=== PATIENT | male | born 1950 | race Caucasian/White ===

== ENCOUNTER → 2019-01-09 | Day surgery (SDC) | payer MEDICARE, BC ==
[2019-01-07 11:57] LABS: BASOPHILS % 0.4 % (0.0-1.0); EOSINOPHILS # (AUTO) 0.2 (0.0-0.4); EOSINOPHILS % 2.1 % (0.0-6.0); HEMOGLOBIN 16.3 g/dL (14.0-18.0); LYMPHOCYTES # (AUTO) 1.4 (1.0-3.2); LYMPHOCYTES % 15.7 % (18.0-39.1); MEAN CORPUSCULAR HEMOGLOBIN 31.2 pg (28-32); MEAN CORPUSCULAR HGB CONC 34.7 g/dL (31-35); MONOCYTES # (AUTO) 0.6 (0.2-0.8); MONOCYTES % 7.2 % (4.4-11.3); NEUTROPHILS # (AUTO) 6.6 (2.1-6.9); NEUTROPHILS % 73.9 % (38.7-80.0); PLATELET COUNT 217 x10e3/uL (140-360); RED BLOOD COUNT 5.22 x10e6/uL (4.3-5.7); RED CELL DISTRIBUTION WIDTH 12.4 % (11.7-14.4)
[2019-01-07 12:15] LABS: ALANINE AMINOTRANSFERASE 22 IU/L (0-55); ALBUMIN 4.3 g/dL (3.5-5.0); ALBUMIN/GLOBULIN RATIO 1.4 (0.8-2.0); ALKALINE PHOSPHATASE 75 IU/L (40-150); ANION GAP 12.3 mmol/L (8-16); BLOOD UREA NITROGEN 12 mg/dL (7-26); BUN/CREATININE RATIO 13 (6-25); CALCIUM 10.1 mg/dL (8.4-10.2); CARBON DIOXIDE 30 mmol/L (22-29); CHLORIDE 99 mmol/L (98-107); CREATININE, SERUM 0.93 mg/dL (0.72-1.25); EST GLOMERULAR FILTRATION RATE > 60 ML/MIN (60-); GLUCOSE 98 mg/dL (74-118); POTASSIUM 4.3 mmol/L (3.5-5.1); SODIUM 137 mmol/L (136-145)
[2019-01-07 12:36] LABS: INR 0.92; PROTHROMBIN TIME 12.8 seconds (11.9-14.5)
[2019-01-07 12:45] LABS: THYROID STIMULATING HORMONE 0.535 uIU/mL (0.350-4.940)
--- NOTE | 2019-01-07 13:55 | Diagnostic Imaging Report ---
EXAMINATION: CHEST 2 VIEWS INDICATION: Pre-operative COMPARISON: None FINDINGS: LINES/TUBES:None LUNGS:The lungs are well-inflated. No focal consolidation or pulmonary edema. PLEURA:No pleural effusion or pneumothorax. MEDIASTINUM:The cardiomediastinal silhouette appears normal in size and shape. BONES/SOFT TISSUES:No acute osseous injury. ABDOMEN:No free air under the diaphragm. IMPRESSION: No focal pneumonia or pulmonary edema. Signed by: Marry Davies MD on 01/07/2019 1:52 PM
[2019-01-09] VITALS (10 sets, daily range): BP systolic 115–153; BP diastolic 62–87
[~2019-01-09] VITALS: Ht 170.2 cm; Wt 90.7 kg
[~2019-01-09] MED LIST: ASPIRIN325 MG PO; ATORVASTATIN CA40 MG PO; CARVEDILOL12.5 MG PO; CLOPIDOGREL75 MG PO; FENTANYL CITRATE/PF 100MCG/2 ML INJ ONE; HEPARIN SOD (PORCINE) 1000 UNIT/ML 30ML ONE; HEPARIN SOD/SOD CHLORIDE 2,000 ML ONE; IOPAMIDOL 370 MG/ML 200 ML INFUS..BTL INJ ONE; LIDOCAINE HCL 2% LOCAL 20 ML VIAL ONE; LISINOPRIL10 MG PO; LORATADINE PO; LOSARTAN POTAS100 MG PO; MIDAZOLAM HCL 2 MG/2 ML VIAL ONE; MONTELUKAST SOD10 MG PO; MULTI-VITAMIN1 EACH PO; NITROGLYCERIN/D5W 200 MCG/ML 250 ML ONE; OMEPRAZOLE40 MG PO; SODIUM CHLORIDE 0.9% 1000ML 1,000 ML ONE; TAMSULOSIN HCL0.4 MG PO; VERAPAMIL HCL 2.5 MG/ML 2 ML VIAL ONE
--- OUTSIDE RECORDS SUMMARY | 2019-01-09 06:20 | XMS REPORT ---
Author [facility] Address Unknown Phone Unavailable Care Team Providers Care Software Implementation Project Manager Name Role Phone STARR LEHMAN Unavailable Unavailable Problems This patient has no known problems. Allergies, Adverse Reactions, Alerts This patient has no known allergies or adverse reactions. Medications This patient has no known medications. Results Test Description Test Time Test Comments Text Results Atomic Results Result Comments CHEST 2 VIEWS 2019-01-07 13:51:00 [place] [address] Patient Name: MP MOROCHO MR #: [id number] : 1950 Age/Sex: 68/M Req #: [id number] Adm Physician: Ordered by: STARR LEHMAN MD Report #: [id number] Location: [facility] Room/Bed: Procedure: [id number] DX/CHEST 2 VIEWS Exam Date: 01/07/19 Exam Time: 1202 REPORT STATUS: Signed EXAMINATION: CHEST 2 VIEWS INDICATION: Pre-operative COMPARISON: None FINDINGS: LINES/TUBES:None LUNGS:The lungs are well-inflated. No focal consolidation or pulmonary edema. PLEURA:No pleural effusion or pneumothorax. MEDIASTINUM:The cardiomediastinal silhouette appears normal in size and shape. BONES/SOFT TISSUES:No acute osseous injury. ABDOMEN:No free air under the diaphragm. IMPRESSION: No focal pneumonia or pulmonary edema. Signed by: Loly Malik MD on 01/07/2019 1:52 PM Dictated By: LOLY MALIK MD 135 Transcribed By: MARY ANN HUTCHISON on 01/07/191351 COPY TO: STARR LEHMAN MD
--- NOTE | 2019-01-09 09:15 | NUR ---
0915 bedside report received from MIKAELA Mendez. Alert oriented and appropriate, PERRLA, respirations even and unlabored to room air. Pulses x4 extremities equal and strong. Pedal pulses PT/DP X4 Cap fill brisk < 3 sec. C no fix Rt radial approach NO gross issues pain pallor pressure or dysthrthmia Skin warm and dry integrity appears D/I. IV 20g presents healthy w/o s/s of infiltration or complaint. Abdomen soft and supple. pt offered toileting, denies need to urinate or defecate. No personal affects with patient. Family at bedside. Pt and family verbalizes understanding of POC. Currently w/o complaint of pain or need. ok to decrease air to TR band at 915am ds/rn
--- NOTE | 2019-01-09 09:15 | NUR ---
0915 RADIAL Compression removal: Initial Cuff volume 13 cc -2cc Removed No hematoma/bleeding noted with normal neurovascular function. 0930 -2 cc Removed No hematoma/ bleeding noted with normal neurovascular function. 0945 -2 cc Removed No hematoma/bleeding noted with normal neurovascular function. 1000 -2 cc Removed No hematoma/ bleeding noted with normal neurovascular function. Air removal completed. 1015 Stasis achieved sterile 2x2,Tegaderm, Coban dressing No hematoma, bleeding noted with normal neurovascular function. Wrist splint in place. Pt instructed on POC. Ds/Rn
--- NOTE | 2019-01-09 10:30 | NUR ---
1030 Pt meets DC criteria. Rt radial assessed for s/s of complication and presence of hematoma. warm, dry, no discolor, and pulses present. IV removed from left hand. Distal tip appears intact. VS WNL. Pt denies pain, sob, or need at this time. Family at at bedside. Review of discharge paperwork and follow up instructions. verbalized understanding. Pt to wheelchair and transported to front of hospital. Transferred to private vehicle under own strength w/o incident with DC paperwork in hand. -ds/rn
--- NOTE | 2019-01-09 13:11 | Operative Report ---
DATE OF PROCEDURE: 01/09/2019 SURGEON: Velia Maya MD PROCEDURE PERFORMED: Left heart cardiac catheterization, coronary angiography. INDICATION FOR PROCEDURE: A 68-year-old gentleman with history of hypertension, hypercholesteremia, CAD with prior history of LAD and circumflex PCI, ischemic cardiomyopathy with EF of about 40%. He has been having cardiopulmonary symptoms concerning for worsening class 3 to 4 angina and abnormal nuclear stress test. DESCRIPTION OF PROCEDURE: After risks, benefits, and pros and cons of today's procedure explained, the patient agreed to proceed. The patient was brought to the cardiac catheterization laboratory. The right wrist was prepped and draped in usual sterile fashion. A 1% lidocaine solution was to numb the right wrist region, and access to the right radial artery was obtained and a long 5-Hungarian Terumo glide sheath was placed. Intra-arterial verapamil 2.5 mg and nitroglycerin 200 mcg were given through sheath and 5000 units of intravenous heparin was given for systemic anticoagulation. Selective coronary angiography of the [place] left and right coronary angiography was performed with Gabriel 4.0 diagnostic catheter. The Gabriel was placed in the ventricle for ventriculography and hemodynamic assessment of ventricular filling pressures. After noting no severe lesions, we decided to conclude the case. The Gabriel catheter was removed with 0.035 J-wire and a Terumo TR band was applied utilizing pain hemostasis technique over the right wrist region and total of 13 mL of air was placed. COMPLICATIONS: None. ESTIMATED BLOOD LOSS: None. FINDINGS: 1. Left main has a 30% ostial stenosis, gives rise to an LAD and circumflex branch. 2. LAD has proximal mid stent, that is widely patent. There is a 40% to 50% stenosis in the mid LAD. The remainder of this vessel has just mild luminal irregularities. 3. Left circumflex artery is codominant and gives rise to two moderate caliber vessels and supplies a large left posterolateral marginal branch. This vessel there is a mid circumflex artery stent that is patent. The remainder of this vessel just mild diffuse disease. 4. RCA is codominant, gives rise to right PDA and right PLV branch. There is an anterior superior takeoff of the RCA artery and there is 30% proximal stenosis followed by 40% mid stenosis. 5. Left ventricular end-diastolic pressure is 22 mmHg. There is no significant LV to aortic pullback gradient. PLAN/RECOMMENDATIONS: 1. Aspirin and Plavix therapy. 2. Statin therapy. 3. Aggressive risk factor modification and medical therapy. MD ROGER Costa/MAU /[id number]
== END | disposition home or self-care (01) ==
LOC: CATH LAB 06:12
PROVIDERS: ATTEND Internal Medicine Cardiovascular Disease
DX: I25.119 Atherosclerotic heart disease of native coronary artery with unspecified angina pectoris (principal); I11.0 Hypertensive heart disease with heart failure; I50.9 Heart failure, unspecified; I25.2 Old myocardial infarction; E78.01 Familial hypercholesterolemia; I65.23 Occlusion and stenosis of bilateral carotid arteries; K21.9 Gastro-esophageal reflux disease without esophagitis; Z87.891 Personal history of nicotine dependence; E66.09 Other obesity due to excess calories; Z68.31 Body mass index [BMI] 31.0-31.9, adult; R94.31 Abnormal electrocardiogram [ECG] [EKG]; Z95.5 Presence of coronary angioplasty implant and graft; M19.90 Unspecified osteoarthritis, unspecified site; I25.5 Ischemic cardiomyopathy; Z79.02 Long term (current) use of antithrombotics/antiplatelets; Z79.82 Long term (current) use of aspirin; Z09 Encounter for follow-up examination after completed treatment for conditions other than malignant neoplasm; Z88.8 Allergy status to other drugs, medicaments and biological substances
CPT/HCPCS: 36415; 71046; 80053; 80061; 84443; 85025; 85610; 85730; 93458; C1769; C1887 ×2; J1644; J2001; J2250; J3010; J7030; Q9967

== ENCOUNTER 2020-06-01 06:17 | Observation (INO) | payer MEDICARE, OTHER ==
[2020-05-27 10:33] LABS: BASOPHILS % 0.4 % (0.0-1.0); EOSINOPHILS # (AUTO) 0.2 (0.0-0.4); HEMATOCRIT 43.9 % (38.2-49.6); HEMOGLOBIN 14.9 g/dL (14.0-18.0); LYMPHOCYTES # (AUTO) 1.6 (1.0-3.2); LYMPHOCYTES % 16.9 % (18.0-39.1); MEAN CORPUSCULAR HEMOGLOBIN 30.3 pg (28-32); MEAN CORPUSCULAR HGB CONC 33.9 g/dL (31-35); MEAN CORPUSCULAR VOLUME 89.4 fL (81-99); MONOCYTES # (AUTO) 0.9 (0.2-0.8); MONOCYTES % 9.2 % (4.4-11.3); NEUTROPHILS # (AUTO) 6.8 (2.1-6.9); NEUTROPHILS % 70.6 % (38.7-80.0); PLATELET COUNT 226 x10e3/uL (140-360); RED BLOOD COUNT 4.91 x10e6/uL (4.3-5.7); RED CELL DISTRIBUTION WIDTH 12.6 % (11.7-14.4)
[2020-06-01] VITALS (8 sets, daily range): BP systolic 112–127; BP diastolic 62–66
[~2020-06-01] VITALS: Ht 170.2 cm; Wt 83.9 kg
[~2020-06-01 06:17] MED LIST changes: -FENTANYL CITRATE/PF 100MCG/2 ML INJ ONE; -HEPARIN SOD (PORCINE) 1000 UNIT/ML 30ML ONE; -HEPARIN SOD/SOD CHLORIDE 2,000 ML ONE; -IOPAMIDOL 370 MG/ML 200 ML INFUS..BTL INJ ONE; -LIDOCAINE HCL 2% LOCAL 20 ML VIAL ONE; -MIDAZOLAM HCL 2 MG/2 ML VIAL ONE; -NITROGLYCERIN/D5W 200 MCG/ML 250 ML ONE; -SODIUM CHLORIDE 0.9% 1000ML 1,000 ML ONE; -VERAPAMIL HCL 2.5 MG/ML 2 ML VIAL ONE
[2020-06-01] MEDS ORDERED: TRANEXAMIC ACID 1,000 MG/10 ML ML ONE (06:34)
[2020-06-01] MEDS ORDERED: VANCOMYCIN HCL 1,000 MG ONE (06:34)
[2020-06-01] MEDS ORDERED: SODIUM CHLORIDE 0.9% 500ML 500 ML ONE (06:34)
[2020-06-01] MEDS ORDERED: DEXAMETHASONE SOD PHOS 10 MG/1 ML VIAL ONE (07:01)
[2020-06-01] MEDS ORDERED: GABAPENTIN 300 MG CAP ONE (07:01)
[2020-06-01] MEDS ORDERED: CELECOXIB 200 MG CAP ONE (07:01)
[2020-06-01] MEDS ORDERED: CEFAZOLIN SOD 1 GM/NS 50ML 100 ML IV ONE (07:02)
[2020-06-01] MEDS ORDERED: ROPIVACAINE 246.25 MG, EPINEPHRINE HCL 1:1000 1ML 0.5 MG, CLONIDINE HCL 0.08 MG, KETORO... INJ ONE ×5 (08:00)
[2020-06-01] MEDS ORDERED: ACETAMINOPHEN 1000 MG/100 ML 100 ML IV ONE (09:16)
[2020-06-01] MEDS ORDERED: DOCUSATE SODIUM 100 MG CAP PO PRN (09:45)
[2020-06-01] MEDS ORDERED: HYDROCODONE/APAP 5MG-325MG TAB PO PRN (09:45)
[2020-06-01] MEDS: SODIUM CHLORIDE 0.9% 1000ML 1,000 ML IV SCH ×2 (09:45→19:45)
[2020-06-01] MEDS ORDERED: HYDROCODONE/APAP 7.5MG-325MG 1 EA TAB PO PRN (09:45)
[2020-06-01] MEDS ORDERED: ACETAMINOPHEN 650 MG SUPP PR PRN (09:45)
[2020-06-01] MEDS ORDERED: ONDANSETRON HCL INJ 2MG/ML 2ML 2 MG/ML VIAL IV PRN (09:45)
[2020-06-01] MEDS ORDERED: DIPHENHYDRAMINE HCL INJ 50 MG/ML VIAL IV PRN (09:45)
[2020-06-01] MEDS ORDERED: KETOROLAC TROMETHAMINE 30 MG/ML VIAL IV PRN (09:45)
[2020-06-01] MEDS ORDERED: ACETAMINOPHEN 1000 MG/100 ML IV PRN (12:00)
[2020-06-01] MEDS ORDERED: ONDANSETRON HCL INJ 2MG/ML 2ML 2 MG/ML VIAL ONE (12:30)
[2020-06-01] MEDS ORDERED: SEVOFLURANE INHAL SOLN 250 ML PEN BTL ONE (12:30)
[2020-06-01] MEDS ORDERED: LIDOCAINE HCL 2% LOCAL INJ 5 ML SDV VIAL INJ ONE (12:30)
[2020-06-01] MEDS ORDERED: EPHEDRINE SULFATE INJ 50 MG/ML VIAL ONE (12:30)
[2020-06-01] MEDS ORDERED: PROPOFOL IV EMULSION 10 MG/ML 20 ML VIAL ONE (12:30)
[2020-06-01] MEDS ORDERED: ROPIVACAINE 0.5% 5 MG/ML 30 ML SDV ONE (12:38)
[2020-06-01] MEDS ORDERED: MIDAZOLAM HCL 2 MG/2 ML VIAL ONE (13:11)
[2020-06-01] MEDS ORDERED: FENTANYL CITRATE/PF 100MCG/2 ML INJ ONE (13:11)
[2020-06-01] MEDS: CELECOXIB 100 MG CAP PO SCH (17:00)
[2020-06-01] MEDS: ASPIRIN 325 MG TAB PO SCH (17:00)
[2020-06-01] MEDS: CEFAZOLIN SOD 1 GM/NS 50ML 50 ML IV SCH ×2 (17:03→23:49)
[2020-06-01] MEDS ORDERED: ZOLPIDEM TARTRATE 5 MG TAB PO PRN (21:00)
[2020-06-02] VITALS: BP 118/62
[2020-06-02 04:00] VITALS: BP 140/69
[2020-06-02] MEDS: CEFAZOLIN SOD 1 GM/NS 50ML 50 ML IV SCH (05:24)
[2020-06-02] MEDS: SODIUM CHLORIDE 0.9% 1000ML 1,000 ML IV SCH (05:24)
[2020-06-02 05:56] LABS: HEMATOCRIT 38.5 % (38.2-49.6); HEMOGLOBIN 13.2 g/dL (14.0-18.0)
[2020-06-02] MEDS: ASPIRIN 325 MG TAB PO SCH (08:42)
[2020-06-02] MEDS: CELECOXIB 100 MG CAP PO SCH (08:42)
[2020-06-02 08:43] VITALS: BP 124/74
[2020-06-02] MEDS ORDERED: LOSARTAN POTASSIUM 100 MG TAB PO SCH (09:00)
[2020-06-02] MEDS ORDERED: CARVEDILOL 12.5 MG TAB PO SCH (09:00)
[2020-06-02] MEDS ORDERED: MONTELUKAST SODIUM 10 MG TAB PO SCH (09:00)
[2020-06-02] MEDS ORDERED: TAMSULOSIN HCL 0.4 MG CAP PO SCH (09:00)
[2020-06-02 09:32] VITALS: BP 124/74
[2020-06-02] MEDS ORDERED: ATORVASTATIN 40 MG TAB PO SCH (21:00)
== END 2020-06-02 12:19 | disposition home or self-care (01) ==
LOC: OR 06:17 → PACU V 10:14 → MED/SURG 10:39
PROVIDERS: ADMIT Specialist; ATTEND Specialist
DX: M17.11 Unilateral primary osteoarthritis, right knee (principal); K21.9 Gastro-esophageal reflux disease without esophagitis; Z95.5 Presence of coronary angioplasty implant and graft; I10 Essential (primary) hypertension; E78.00 Pure hypercholesterolemia, unspecified; I25.2 Old myocardial infarction; N40.0 Benign prostatic hyperplasia without lower urinary tract symptoms; D64.9 Anemia, unspecified; E78.5 Hyperlipidemia, unspecified; Z01.810 Encounter for preprocedural cardiovascular examination; Z01.812 Encounter for preprocedural laboratory examination; Z01.818 Encounter for other preprocedural examination; Z20.828 Contact with and (suspected) exposure to other viral communicable diseases
CPT/HCPCS: 27447; 36415 ×2; 71046; 73560; 85014; 85018; 85025; 86850; 86900; 86920; 93005; 97110; 97116 ×2; 97161; C1713 ×3; C1776 ×2; G0378 ×2; J0131; J0171; J0690 ×2; J1100; J1885; J2001; J2250; J2405; J2704; J2795; J3010; J3370; J7030; J7040; U0002